=== PATIENT | male | born 1945 | race Caucasian/White ===

== ENCOUNTER → 2017-03-28 | Outpatient (CLI) | payer OTHER ==
[~2017-03-28] MED LIST: GADOBUTROL 10 ML VIAL IVP ONE
[2017-03-28 07:53] LABS: CREATININE 0.9 mg/dL (0.7-1.3); GLOMERULAR FILTRATION RATE > 60
== END ==
LOC: FIMAGING 07:07
PROVIDERS: ATTEND Specialist
DX: R93.8 Abnormal findings on diagnostic imaging of other specified body structures (principal); R97.20 Elevated prostate specific antigen [PSA]
CPT/HCPCS: 72197; 76377; A9585